=== PATIENT | male | born 1975 | race Caucasian/White ===

== ENCOUNTER 2016-12-24 07:33 | Day surgery (SDC) | payer OTHER ==
[2016-12-18 14:42] LABS: HEMOGLOBIN 9.8 g/dL (13.6-17.8)
--- NOTE | ~2016-12-24 | OP ---
Record Of Operation [facility] [address] [place]. [address] NAME: LM PANIAGUA : 71 STATUS : [place] [facility] PAT#: [id number] AGE: 41 ADM/REG DATE : 12/24/16 MR#: [id number] REPORT SERV DATE: 12/24/16 DICTATED BY: Petros RDORIGUEZ DATE: 12/24/16 REPORT STATUS : Draft TRANSCRIBED BY: MODL DATE: 12/24/16 DATE OF PROCEDURE: 12/24/2016 PREOPERATIVE DIAGNOSIS: Recurrent urinary tract infections. POSTOPERATIVE DIAGNOSIS: Recurrent urinary tract infections. PROCEDURE: Cystoscopy, bilateral retrograde pyelography, examination under anesthesia. SURGEON: Petros Rodrgiuez M.D. ANESTHESIA: General. COMPLICATIONS: None. DRAINS: None. BRIEF HISTORY: Mr. Paniagua is a 41-year-old white male with a history of recurrent UTIs. He had a recent early sepsis and a urine culture positive for 100,000 colonies of Staph epidermidis. Noncontrast CT showed bilateral nonobstructing renal stones. He is here for the above procedure. The risks of bleeding, infection, anesthesia, inability to find the cause of his problem, etc, were all discussed. There were no unanswered questions. DESCRIPTION OF PROCEDURE: Under excellent general anesthesia, the patient was prepped and draped in standard lithotomy position. Digital exam revealed a 1+ symmetric, smooth, benign feeling gland. Cystoscopy was performed with 30- and 70-degree lens, revealed a normal anterior urethra. The posterior urethra showed a minimally obstructing prostate gland. Inspection of the bladder revealed some small crystalline substances, but no overt stones, tumors, or foreign bodies. His orifices were normal, and efflux clear urine. An 8-Yi cone-tipped catheter was used to perform a right retrograde pyelogram, which showed a normal caliber ureter. There was fullness to the collecting system, but it drained promptly and efficiently with no significant filling defects. Similarly, the left ureter was normal without filling defect or obstruction as was the collecting system. I terminated the procedure and plan to discharge Mr. Paniagua as an outpatient with the following instructions. DISCHARGE INSTRUCTIONS: 1. Home today. 2. Trimethoprim 200 mg one p.o. daily x90 days with one refill. 3. Follow up in my office in three months and we will review his symptoms in the office sooner if he feels like he has a symptomatic infection and needs a culture. We will consider additional therapy such as TheraCran, etc. JPD/MODL Record Of [place] [address] [address] [place] [id number] NAME: LM PANIAGUA : 71 STATUS : [place] [facility] PAT#: [id number] AGE: 41 ADM/REG DATE : 12/24/16 MR#: [id number] REPORT SERV DATE: 12/24/16 DICTATED BY: Petros RODRIGUEZ DATE: 12/24/16 REPORT STATUS : Draft TRANSCRIBED BY: JAIME DATE: 12/24/16 Petros Rodriguez M.D. / [id number] CC: Eric Griffin M.D.
[~2016-12-24 07:33] MED LIST: *DENIES; AMIT25 PO; ASAB PO; ATV.5 PO; ATV1 PO; AUG875 PO; B COMPLETE PO; B12250T PO; BISR PR; CELEXA20 PO; CO Q-10200 MG PO; COLACEUDL PO; COR40 PO; COZAAR100 MG PO; DURA100 TOP; DURA25 TOP; DURA50 TOP; FENESIN IR400 MG PO; FLAG500TAB PO; FLONASE NAS; GLUCOPHAGE1000 MG PO; GLUCPH PO; HUMULIN SC; I20 PO; IMDUR30 PO; K250 PO; KLONO5 PO; L40 PO; LACT30UDL; LAN25 PO; LEVAQUIN5T PO; LEVEMFLXPN SC; LEVEMIR SC; LEVOTHYROXIN75 MCG PO; LEVSINTAB PO; LIPITOR20 PO; LOP25 PO; LOP50 PO; LORTABLIQ PO; METHOC750B PO; MIRALAXPKT PO; MSIMMR15 PO; MULTIVITAMI1 PO; NOVOPEN SC; OXYCOD PO; OXYCON20 PO; OXYCON40 PO; PEP20 PO; PERCOCET1 TA2 PO; PR25 PO; PRAVACHOL80 MG PO; PROTONIX PO; REGL PO; ROXANOL20 MG/ML SL; STOOL SOFTEN100 MG PO; TESTOST CYP100 MG/ML IM; TUBE FEEDING; URSO FORTE500 MG PO; VITAMIN B COMPLEX; VITAMIN B PO; VITE PO; WELLXL150 PO; WELLXL300 PO; XIFAXAN550 MG PO; ZOFRANODT8 PO
[2016-12-24 08:55] LABS: ALBUMIN 2.4 G/DL (3.5-5.0); BUN (BLOOD UREA NITROGEN) 7 MG/DL (6-23); CALCIUM, SERUM 8.7 MG/DL (8.5-10.4); CHLORIDE, SERUM 101 MMOL/L (96-112); CREATININE 0.87 MG/DL (0.70-1.30); GFR AFRICAN AMERICAN 123 ML/MIN (>=60); GFR NON AFRICAN AMERICAN 106 ML/MIN (>=60); SGPT(ALT) 15 U/L (5-65); SODIUM, SERUM 139 MMOL/L (135-148); TOTAL BILIRUBIN 0.9 MG/DL (0-1.2)
[2016-12-24 08:56] LABS: ALKALINE PHOSPHATASE 157 U/L (45-117); CO2 (CARBON DIOXIDE) 26 MMOL/L (24-34); DIRECT BILIRUBIN 0.1 MG/DL (0.0-0.4); GLUCOSE, SERUM 100 MG/DL (60-99); INDIRECT BILIRUBIN(NOT ORDER) 0.8 MG/DL (0.1-0.9); POTASSIUM, SERUM 4.6 MMOL/L (3.5-5.3); SGOT(AST) 34 U/L (5-40)
[2017-05-09] MEDS ORDERED: ALIGN4 MG PO (12:13)
[2017-05-09] MEDS ORDERED: CONSTULOSE PO (12:14)
[2017-05-09] MEDS ORDERED: AMIT25 PO (12:16)
[2017-05-09] MEDS ORDERED: PROLOP100 PO (12:16)
[2017-05-09] MEDS ORDERED: CREON DR 3,0001 EACH PO (12:17)
[2017-05-09] MEDS ORDERED: OTC IRON PO (12:17)
[2017-06-12] MEDS ORDERED: PEP20 PO (14:46)
[2017-06-12] MEDS ORDERED: B COMPLETE PO (14:47)
[2017-07-09] MEDS ORDERED: ACET500CAP PO (17:27)
[2017-07-10] MEDS ORDERED: IRON PO (12:34)
[2017-08-02] MEDS ORDERED: URSO FORTE500 MG PO (18:57)
[2017-08-02] MEDS ORDERED: PROLOP100 PO (18:57)
[2017-08-02] MEDS ORDERED: XIFAXAN550 MG PO (18:58)
[2017-08-02] MEDS ORDERED: LEVEMFLXPN SC (18:58)
[2017-08-02] MEDS ORDERED: ATV.5 PO ×2 (18:59)
[2017-08-02] MEDS ORDERED: AMIT25 PO (18:59)
[2017-08-02] MEDS ORDERED: OXYCOD PO (19:00)
[2017-08-02] MEDS ORDERED: PROTONIX PO (19:01)
[2017-08-02] MEDS ORDERED: OXYCON40 PO (19:01)
[2017-08-02] MEDS ORDERED: CREON PO (19:02)
[2017-08-02] MEDS ORDERED: ENULOSE PO (19:03)
[2017-08-02] MEDS ORDERED: CELEXA20 PO (19:05)
[2017-08-02] MEDS ORDERED: WELLXL300 PO (19:05)
[2017-08-02] MEDS ORDERED: FERROUS SULF325 M1 PO (19:06)
[2017-08-02] MEDS ORDERED: CO Q-10200 MG PO (19:06)
[2017-08-02] MEDS ORDERED: VITAMIN B PO (19:06)
[2017-08-02] MEDS ORDERED: REFRESH OPH (19:07)
[2017-08-02] MEDS ORDERED: ACET500CAP PO (19:07)
[2017-08-05] MEDS ORDERED: AUG500 PO (08:33)
== END 2016-12-24 23:59 | disposition home or self-care (01) ==
LOC: SDC 07:33
PROVIDERS: Anesthesiology
PROC: BT14ZZZ Fluoroscopy of Kidneys, Ureters and Bladder (ICD-10-PCS; principal; 2016-12-24 09:45)
DX: N39.0 Urinary tract infection, site not specified (principal); G47.33 Obstructive sleep apnea (adult) (pediatric); E11.9 Type 2 diabetes mellitus without complications; N41.9 Inflammatory disease of prostate, unspecified; F41.9 Anxiety disorder, unspecified; F32.9 Major depressive disorder, single episode, unspecified; F43.10 Post-traumatic stress disorder, unspecified; Z88.8 Allergy status to other drugs, medicaments and biological substances; Z88.6 Allergy status to analgesic agent; Z79.84 Long term (current) use of oral hypoglycemic drugs; Z79.891 Long term (current) use of opiate analgesic; Z79.4 Long term (current) use of insulin; Z79.899 Other long term (current) drug therapy; Z79.2 Long term (current) use of antibiotics; Z87.19 Personal history of other diseases of the digestive system; Z90.49 Acquired absence of other specified parts of digestive tract; Z98.890 Other specified postprocedural states
CPT/HCPCS: 74420; 80048; 80076; 82962; 85014; 85018; A9270-GY; C1758; C1769; J1170; J2250; J2370; J2405; J2710; J3010; Q9967